=== PATIENT | male | born 1945 ===

== ENCOUNTER 2019-12-04 20:04 | Emergency (ER) | payer BC, MEDICARE ==
[~2019-12-04] VITALS: Ht 180.3 cm; Wt 91.2 kg
[2019-12-04 20:16] VITALS: BP 102/65
--- NOTE | 2019-12-04 20:16 | NUR ---
ED Nurse Note: [place] [facility] uncontrolled bleeding of left great toe S/P amputation x2 days ago. Pt c/o 6/10 pain. Left great toe is not activley bleeding. Dressing is in placed. Pt AAOx3, verbally responsive. No SOB. Afebrile. VSS.
[2019-12-04] MEDS ORDERED: LEVEMIR100 UNIT/1 SUBQ (20:44)
[2019-12-04] MEDS ORDERED: GERI-KOT8.6 MG PO (20:44)
[2019-12-04] MEDS ORDERED: LACTULOSE10 GM/153 PO (20:44)
[2019-12-04] MEDS ORDERED: ZOSYN 3.373.375 GM/1 IVPB (20:44)
[2019-12-04] MEDS ORDERED: CARVEDILOL12.5 MG ORAL (20:44)
[2019-12-04] MEDS ORDERED: ADALAT20 MG ORAL (20:44)
[2019-12-04] MEDS ORDERED: VANCOMYCIN750 MG/150 IV (20:44)
[2019-12-04] MEDS ORDERED: FOLIC ACID1 MG ORAL (20:44)
[2019-12-04] MEDS ORDERED: ASPIRIN81 M3 PO (20:44)
[2019-12-04] MEDS ORDERED: HUMALOG100 UNIT/1 SUBQ (20:44)
[2019-12-04] MEDS ORDERED: VITAMIN A AND113 GM TP (20:44)
[2019-12-04] MEDS ORDERED: ATORVASTATIN CA40 MG ORAL (20:44)
[2019-12-04] MEDS ORDERED: ENOXAPARIN80 MG/0.8 SUBQ (20:44)
[2019-12-04] MEDS ORDERED: NEOSPORIN OINT30 GM TOPIC (20:44)
[2019-12-04] MEDS ORDERED: [UNRECOGNIZED DRUG - OTHER] PO (20:44)
[2019-12-04] MEDS ORDERED: ZINC OXIDE56.7 G1 TP (20:44)
[2019-12-04] MEDS ORDERED: MAGNESIUM CITR296 M1 PO (20:44)
[2019-12-04] MEDS ORDERED: VITAMIN B-1100 MG ORAL (20:44)
[2019-12-04] MEDS ORDERED: DOCUSATE SODIU100 MG ORAL (20:44)
--- NOTE | 2019-12-04 20:48 | NUR ---
ED Nurse Note: ERMD at bedside.
[2019-12-04] MEDS ORDERED: Bacitracin Oint UD TOPIC ONE ×2 (21:20→21:30)
--- NOTE | 2019-12-04 21:46 | NUR ---
Nurse Note: Spoke with JAMES Trinidad at [facility]. Valorieifer given update and is aware of transfer back.
--- NOTE | 2019-12-04 22:15 | NUR ---
ED Nurse Note: pt resting in bed, vss no ss of distress noted. Pt requested a cup of coffee; per ERMD, pt given coffee. Pt tolerated well no ss of distress noted. will continue to monitor.
--- NOTE | 2019-12-04 22:27 | Emergency Room Report ---
History of Present Illness General Chief Complaint: Wound Recheck/Suture Removal Source: Patient, Medical Record, EMS Present Illness HPI 74-year-old male presented for bleeding. Patient had amputation of left first toe yesterday. Currently resides in a residential facility. Apparently bleeding was noted at the residential facility so patient sent for further evaluation and treatment. Patient denied any pain at the site. 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 Patient History Reviewed Nursing Documentation: PMH: Agreed; PSxH: Agreed Nursing Documentation-PMH Past Medical History: No History, Except For Hx Cardiac Problems: Yes - Atherosclerosis Hx Hypertension: Yes Hx Pacemaker: Yes Hx Asthma: No Hx COPD: No Hx Diabetes: Yes Hx Cancer: Yes Hx Gastrointestinal Problems: No Hx Dialysis: No - CKD History Of Psychiatric Problem: No Hx Neurological Problems: No Hx Cerebrovascular Accident: No Hx Seizures: No Review of Systems All Other Systems: negative except mentioned in HPI Physical Exam Vital Signs Date Time Temp Pulse Resp B/P (MAP) Pulse Ox O2 Delivery O2 Flow Rate FiO2 12/04/19 20:06 98.4 90 102/65 (77) 18 Room Air 12/04/19 20:16 19 Sp02 EP Interpretation: reviewed, normal General Appearance: well appearing, no apparent distress Head: normocephalic, atraumatic Eyes: bilateral eye PERRL, bilateral eye EOMI ENT: hearing grossly normal, moist mucus membranes Neck: full range of motion, supple Respiratory: lungs clear, normal breath sounds, no rhonchi, no respiratory distress, no retraction, no wheezing Cardiovascular #1: normal peripheral pulses, regular rate, rhythm, no murmur Gastrointestinal: non tender, soft, non-distended, no guarding Musculoskeletal: other - Left forefoot with amputation noted, active bleeding noted from surgical site. Neurologic: alert, oriented x3, no focal defects Skin: normal color, warm/dry Procedures Laceration/Wound Repair Laceration/Wound Repair : Consent: Verbal Wound Location: lower extremity Wound's Depth, Shape: into muscle Wound Explored: clean Anesthesia: 1% Lidocaine Wound Debrided: None Wound Repaired With: sutures Suture Size/Type: 4:0 Sterile Dressing Applied?: Yes Patient Tolerated: Well Complications: None Progress 2 mattress sutures were placed to control hemorrhage Medical Decision Making Diagnostic Impression: Primary Impression: Post-operative hemorrhage ER Course Patient presented for postoperative bleeding. To sutures were placed at the surgical site by me with hemorrhage control. Patient otherwise nontoxic no acute distress stable vital signs will be discharged back to facility. Instructed to follow-up with surgery for suture removal as scheduled. Low suspicion for severe hemorrhage or need for transfusion at this time. Last Vital Signs Date Time Temp Pulse Resp B/P (MAP) Pulse Ox O2 Delivery O2 Flow Rate FiO2 12/04/19 20:16 98.4 90 19 102/65 18 Room Air Disposition: SNF Condition: Improved Patient Instructions: Wound Check Additional Instructions: Please follow-up with your surgeon as scheduled. The sutures can be removed at time of follow-up with your surgeon. Or if necessary you may return here in 2 weeks for suture removal Monroe Manning M.D. Dec 04, 2019 22:27
[2019-12-04 22:45] VITALS: BP 105/62
[2019-12-05 00:29] VITALS: BP 109/69
--- NOTE | 2019-12-05 00:29 | NUR ---
ER DISCHARGE NOTE: Patient is cleared to be discharged to [facility] via [facility] per ERMD, pt is aox4, 97% on room air, with stable vital signs. pt was given dc and prescription instructions, pt was able to verbalize understanding, pt id band removed. pt is able to ambulate with steady gait. pt took all belongings.
== END 2019-12-05 00:29 ==
LOC: EDBD 20:04 → EMR 21:20
DX: M96.831 Postprocedural hemorrhage of a musculoskeletal structure following other procedure (principal); Z95.0 Presence of cardiac pacemaker; I12.9 Hypertensive chronic kidney disease with stage 1 through stage 4 chronic kidney disease, or unspecified chronic kidney disease; E11.22 Type 2 diabetes mellitus with diabetic chronic kidney disease; N18.9 Chronic kidney disease, unspecified; Z85.9 Personal history of malignant neoplasm, unspecified
CPT/HCPCS: 99283